=== PATIENT | male | born 1995 | race Caucasian/White ===

== ENCOUNTER 2016-04-26 21:50 | Emergency (ER) | payer OTHER ==
--- NOTE | 2016-04-26 22:11 | ED.PDOC ---
History of Present Illness - General Chief Complaint: Respiratory Problem Stated Complaint: cough and congestion x2 weeks Time Seen by Provider: 04/26/16 22:07 Source: patient Exam Limitations: no limitations - History of Present Illness Initial Comments: He stated that he had been coughing for 2 weeks got better then 3 days later had same episode of non productive cough no fever no sob no chest pains.No ill contact,no foreign travel Timing/Duration: other - 14 days Severity: moderate Possible Cause: occasional episodes, unknown cause Improving Factors: nothing Worsening Factors: nothing Associated Symptoms: denies symptoms Allergies/Adverse Reactions: Allergies NO KNOWN ALLERGY Allergy (Verified 09/07/15 23:02) Home Medications: Ambulatory Orders Methocarbamol [Robaxin] 750 mg PO BID #14 tab 12/29/15 Naproxen Sodium [Naprelan] 750 mg PO BID PRN #14 tab 12/29/15 Chlorhexidine Mouth Rinse [Peridex] 473 ml MT BID #1 bttl 01/09/16 Clindamycin HCl 150 mg PO Q6HR #30 cap 01/09/16 Gabapentin 300 mg PO BID #14 cap 01/09/16 Albuterol Inhaler [Ventolin Hfa Inhaler] 108 mcg IN QID PRN #1 inh 04/26/16 Chlorpheniramine Maleate [Chlor-Trimeton Allergy] 12 mg PO BID #30 tab 04/26/16 Dextromet/Guaifenesin 600/30 T [Mucinex Dm 600/30MG] 1 tab PO BID #30 tab Review of Systems - Review of Systems Constitutional: States: no symptoms reported EENTM: States: no symptoms reported Respiratory: States: see HPI Cardiology: States: no symptoms reported, chest pain Genitourinary: States: no symptoms reported Musculoskeletal: States: no symptoms reported Skin: States: no symptoms reported Neurological: States: emotional problems - depression taking meds Endocrine: States: no symptoms reported Hematologic/Lymphatic: States: no symptoms reported Past Medical History (General) - Patient Medical History Hx Seizures: No Hx Stroke: No Hx Dementia: No Hx Asthma: No Hx of COPD: No Hx Cardiac Disorders: No Hx Congestive Heart Failure: No Hx Pacemaker: No Hx Hypertension: No Hx Thyroid Disease: No Hx Diabetes: No Hx Gastroesophageal Reflux: No Hx Renal Disease: No Hx Cancer: No Hx of HIV: No Hx Hepatitis C: No Hx MRSA: No Surgical History: no surgical history - Vaccination History Hx Tetanus, Diphtheria Vaccination: No Hx Influenza Vaccination: No Hx Pneumococcal Vaccination: No - Social History Hx Tobacco Use: Yes - 1/2 ppd 5 years Cigarettes Packs Per Day: 10 Hx Chewing Tobacco Use: No Hx Alcohol Use: Yes - OCC Hx Substance Use: No Hx Substance Use Treatment: No Hx Depression: No Hx Physical Abuse: No Hx Emotional Abuse: No Hx Suspected Abuse: No - Activities of Daily Living Patient Lives Alone: No - family - Female History Patient : No Family Medical History - Family History Mother Hx Family Asthma: No Hx Family Congestive Heart Failure: No Hx Family Hypertension: Yes Hx Family Stroke: No Hx Cardiac Disease: No Hx Family Diabetes: No Hx Family Cancer: No Hx Family;Other: Depression Physical Exam - Physical Exam General Appearance: Alert, No apparent distress Eye Exam: bilateral normal ENT Exam: normal ENT inspection, hearing grossly normal, TMs normal, pharynx normal Neck: non-tender, full range of motion, supple, normal inspection Respiratory: chest non-tender, no respiratory distress, wheezing - mild Cardiovascular/Chest: normal peripheral pulses, regular rate, rhythm, no edema, no gallop Gastrointestinal/Abdominal: normal bowel sounds, non tender, soft, no organomegaly Extremity: normal range of motion, non-tender, normal inspection, no pedal edema Neurologic: no motor/sensory deficits, alert, normal mood/affect, oriented x 3 Skin Exam: normal color, warm/dry Progress - Results/Orders Results/Orders: 04/26/16 22:16 SVN/Updraft Therapy .ONCE Chest,1 View [RAD] Stat 04/27/16 09:00 [facility] Laboratory Results WBC 8.0 K/mm3 (4.8-10.8) 04/26/16 22:26 RBC 5.03 M/mm3 (4.70-6.10) 04/26/16 22:26 Hgb 15.3 gm/dL (14.0-18.0) 04/26/16 22:26 Hct 44.7 % (42.0-52.0) 04/26/16 22:26 MCV 88.9 fl (80.0-94.0) 04/26/16 22:26 MCH 30.5 pg (27.0-31.0) 04/26/16 22:26 MCHC 34.3 g/dL (33.0-37.0) 04/26/16 22: RDW 12.8 % (11.5-14.5) 04/26/16 22:26 Plt Count 175 K/mm3 (130-400) 04/26/16 22:26 MPV 9.6 fl (7.40-10.4) 04/26/16 22:26 Absolute Neuts (auto) 3.40 K/uL (1.8-6.8) 04/26/16 22:26 Absolute Lymphs (auto) 3.70 K/uL (1.0-3.4) H 04/26/16 22: Absolute Monos (auto) 0.60 K/uL (0.2-0.8) 04/26/16 22: Absolute Eos (auto) 0.10 K/uL (0.0-0.4) 04/26/16 22: Absolute Basos (auto) 0.10 K/uL (0.0-0.1) 04/26/16 22:26 Neutrophils % 43.1 % (42.0-78.0) 04/26/16 22: Lymphocytes % 46.2 % (20.0-50.0) 04/26/16 22: Monocytes % 7.9 % (2.0-9.0) 04/26/16 22: Eosinophils % 1.6 % (1.0-5.0) 04/26/16 22: Basophils % 1.2 % (0.0-2.0) 04/26/16 22:26 - EKG/XRAY/CT XRAY: chest - no consolidation no pneumothorax no effusion peribronchial infiltrates Departure - Departure Clinical Impression: Bronchitis, acute Qualifiers: Bronchitis organism: unspecified organism Qualifier Code: (J20.9) Acute bronchitis, unspecified Time of Disposition: 23:07 Disposition: Discharge to Home or Self Care Condition: Good Departure Forms: ED Discharge - Pt. Copy, Patient Portal Self Enrollment Instructions: DI for Acute Bronchitis, Nicotine Addiction, Reasons to Quit Smoking Referrals: Migel Villalta MD [Primary Care Provider] - 1-2 Weeks Prescriptions: Chlorpheniramine Maleate [Chlor-Trimeton Allergy] 12 mg PO BID #30 tab Dextromet/Guaifenesin 600/30 T [Mucinex Dm 600/30MG] 1 tab PO BID #30 tab Albuterol Inhaler [Ventolin Hfa Inhaler] 108 mcg IN QID PRN #1 inh PRN Reason: Cough Home Medications: Ambulatory Orders Methocarbamol [Robaxin] 750 mg PO BID #14 tab 12/29/15 Naproxen Sodium [Naprelan] 750 mg PO BID PRN #14 tab 12/29/15 Chlorhexidine Mouth Rinse [Peridex] 473 ml MT BID #1 bttl 01/09/16 Clindamycin HCl 150 mg PO Q6HR #30 cap 01/09/16 Gabapentin 300 mg PO BID #14 cap 01/09/16 Albuterol Inhaler [Ventolin Hfa Inhaler] 108 mcg IN QID PRN #1 inh 04/26/16 Chlorpheniramine Maleate [Chlor-Trimeton Allergy] 12 mg PO BID #30 tab 04/26/16 Dextromet/Guaifenesin 600/30 T [Mucinex Dm 600/30MG] 1 tab PO BID #30 tab Additional Instructions: FOLLOW UP WITH PRIMARY MD 05/01/2016
[2016-04-26] MEDS ORDERED: diphenhydrAMINE HCL 25 MG CAP PO ONE (22:16)
[2016-04-26] MEDS ORDERED: IPRATROPIUM/ALBUTEROL 3 ML VIAL NEB ONE (22:17)
[2016-04-26 22:53] VITALS: O2SAT 98
--- NOTE | 2016-04-26 23:14 | RAD ---
EXAM DESCRIPTION: Chest,1 View CLINICAL HISTORY: 21 years Male cough COMPARISON: X-ray thoracic spine study from 12/29/2015. FINDINGS: The cardiomediastinal silhouette appears unremarkable. No consolidating infiltrates or pleural effusions. No pneumothorax. IMPRESSION: No acute abnormality is identified. Electronically signed by: Toby Garcia MD 04/26/2016 10:42 PM FEATHER SHAPER
[2016-04-26 23:23] VITALS: BP 138/74; TEMP 97.8
--- NOTE | 2016-04-30 00:51 | RAD ---
EXAM DESCRIPTION: Chest,1 View CLINICAL HISTORY: 21 years Male cough COMPARISON: X-ray thoracic spine study from 12/29/2015. FINDINGS: The cardiomediastinal silhouette appears unremarkable. No consolidating infiltrates or pleural effusions. No pneumothorax. IMPRESSION: No acute abnormality is identified. Electronically signed by: Toby Garcia MD 04/26/2016 10:42 PM CERTIFICATION AND SELECTION SPECIALIST
--- NOTE | 2016-05-03 10:47 | RAD ---
EXAM DESCRIPTION: Chest,1 View CLINICAL HISTORY: 21 years Male cough COMPARISON: X-ray thoracic spine study from 12/29/2015. FINDINGS: The cardiomediastinal silhouette appears unremarkable. No consolidating infiltrates or pleural effusions. No pneumothorax. IMPRESSION: No acute abnormality is identified. Electronically signed by: Toby Garcia MD 04/26/2016 10:42 PM CLINICAL DATA MANAGER
== END 2016-04-26 23:25 | disposition home or self-care (01) ==
LOC: ER 21:50
DX: J20.9 Acute bronchitis, unspecified (principal); F17.210 Nicotine dependence, cigarettes, uncomplicated; Z79.899 Other long term (current) drug therapy
CPT/HCPCS: 36415; 71010; 85025; 94640; J7620; Q0163

== ENCOUNTER 2018-02-10 21:03 | Emergency (ER) | payer SELFPAY ==
--- NOTE | 2018-02-10 21:18 | ED.PDOC ---
History of Present Illness - General Chief Complaint: Respiratory Problem Stated Complaint: cough, chest discomfort Time Seen by Provider: 02/10/18 21:18 Source: patient Exam Limitations: no limitations - History of Present Illness Comments: Maynor Munguia 22 y/o male stated that he had a dry cough last week went to see his Md was prescribed antibiotics got better but his cough recurred 2 days ago this time with pleuritic pain during coughing episode no fever,no sob.He stated he smokes but cut down on his cigarette smoking.Denies chronic medical problem. Timing/Duration: changing over time, other - see hpi Cough Quality/Degree: dry cough Possible Cause: occasional episodes Improving Factors: nothing Worsening Factors: nothing Associated Symptoms: other - see hpi Respiratory Risk Factors: other - smoking Allergies/Adverse Reactions: Allergies NO KNOWN ALLERGY Allergy (Verified 02/10/18 21:14) Home Medications: Ambulatory Orders Benzonatate Perles [Tessalon Perles] 200 mg PO BID #20 cap 02/10/18 Sulfa/Trimeth 800/160 (Ds) Tab [Bactrim DS] 1 tablet PO BID #14 tab 02/10/18 Review of Systems - Review of Systems Respiratory: States: see HPI All other Systems: Reviewed and Negative, No Change from Baseline Past Medical History (General) - Patient Medical History Hx Seizures: No Hx Stroke: No Hx Dementia: No Hx Asthma: No Hx of COPD: No Hx Cardiac Disorders: No Hx Congestive Heart Failure: No Hx Pacemaker: No Hx Hypertension: No Hx Thyroid Disease: No Hx Diabetes: No Hx Gastroesophageal Reflux: No Hx Renal Disease: No Hx Cancer: No Hx of HIV: No Hx Hepatitis C: No Hx MRSA: No Surgical History: no surgical history - Vaccination History Hx Tetanus, Diphtheria Vaccination: No Hx Influenza Vaccination: No Hx Pneumococcal Vaccination: No - Social History Hx Tobacco Use: Yes - 1/2 ppd 5 years Hx Chewing Tobacco Use: No Hx Alcohol Use: Yes - OCC Hx Substance Use: No Hx Substance Use Treatment: No Hx Depression: No Hx Physical Abuse: No Hx Emotional Abuse: No Hx Suspected Abuse: No - Female History Patient : No Family Medical History - Family History Mother Hx Family Asthma: No Hx Family Congestive Heart Failure: No Hx Family Hypertension: Yes - both parents Hx Family Stroke: No Hx Cardiac Disease: No Hx Family Diabetes: No Hx Family Cancer: No Hx Family;Other: Depression Physical Exam - Physical Exam General Appearance: Alert, Comfortable, No apparent distress Eye Exam: bilateral normal ENT Exam: normal ENT inspection, hearing grossly normal, TMs normal, pharynx normal, nasal congestion Neck: non-tender, supple, normal inspection, trachea midline Respiratory: chest non-tender, lungs clear, normal breath sounds, no respiratory distress Cardiovascular/Chest: normal peripheral pulses, regular rate, rhythm, no murmur Gastrointestinal/Abdominal: non tender, soft, no organomegaly Extremity: no pedal edema, no calf tenderness Neurologic: alert, oriented x 3 Skin Exam: normal color, warm/dry Progress - Progress Progress: 02/10/18 21:28 Vital Signs - 8 hr 02/10/18 02/10/18 21:11 21:16 Temperature 97.3 F L Pulse Rate [ 98 H monitor] Respiratory 20 20 Rate Blood Pressure 156/107 [Left Arm] O2 Sat by Pulse 99 Oximetry - EKG/XRAY/CT XRAY: chest - no acute abnormalities Departure - Departure Clinical Impression: Upper respiratory infection Qualifiers: URI type: unspecified URI Qualified Code(s): J06.9 - Acute upper respiratory infection, unspecified Time of Disposition: 21:46 Disposition: Discharge to Home or Self Care Condition: Good Departure Forms: ED Discharge - Pt. Copy, Patient Portal Self Enrollment Instructions: Smoking: Not Just Harmful to Your Lungs and Heart, Quitting Smoking Referrals: Migel Villalta MD [Primary Care Provider] - 1-2 Weeks Prescriptions: Benzonatate Perles [Tessalon Perles] 200 mg PO BID #20 cap Sulfa/Trimeth 800/160 (Ds) Tab [Bactrim DS] 1 tablet PO BID #14 tab Home Medications: Ambulatory Orders Benzonatate Perles [Tessalon Perles] 200 mg PO BID #20 cap 02/10/18 Sulfa/Trimeth 800/160 (Ds) Tab [Bactrim DS] 1 tablet PO BID #14 tab 02/10/18 Additional Instructions: Follow up with primary Md 14 Feb 2018;Return to ER as needed;May take Benadryl capsule 2 capsule am/pm for cough(over the counter)
--- NOTE | 2018-02-10 21:42 | RAD ---
EXAM DESCRIPTION: Chest,1 View CLINICAL HISTORY:22 years Male, cough Comparison: April 26, 2016 FINDINGS: No focal lung consolidation. No pleural effusion. No pneumothorax. Cardiac and mediastinal silhouette is unremarkable. No acute osseous abnormality. Soft tissues are unremarkable. IMPRESSION: No acute findings. No focal lung consolidation. Electronically signed by: Jae Severino MD 02/10/2018 9:41 PM MOSAIC TILE MAKER
[2018-02-10] MEDS: AZITHROMYCIN 250 MG TAB PO ONE (21:47)
[2018-02-10] MEDS: diphenhydrAMINE HCL 25 MG CAP PO ONE (21:47)
[2018-02-10] MEDS: BENZONATATE PERLES 100 MG CAP PO ONE (21:47)
[2018-02-10 21:59] VITALS: BP 130/85; TEMP 97.4; O2SAT 97
== END 2018-02-10 21:59 | disposition home or self-care (01) ==
LOC: ER 21:03
DX: J06.9 Acute upper respiratory infection, unspecified (principal); F17.210 Nicotine dependence, cigarettes, uncomplicated
CPT/HCPCS: 71045; Q0144; Q0163

== ENCOUNTER 2019-01-19 08:46 | Emergency (ER) | payer OTHER ==
[2019-01-19 09:08] VITALS: TEMP 97.9
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
[2019-01-19 09:30] VITALS: BP 158/106; O2SAT 97
[2019-01-19] MEDS ORDERED: cefTRIAXone SODIUM 1 GM VIAL ONE (09:36)
[2019-01-19] MEDS ORDERED: SODIUM CHLORIDE 0.9% 50ML 50 ML ONE (09:37)
[2019-01-19] MEDS ORDERED: fentaNYL CITRATE INJ 50 MCG/ML AMP ONE (09:39)
[2019-01-19] MEDS ORDERED: fentaNYL CITRATE INJ 50 MCG/ML AMP IV ONE (09:39)
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
[2019-01-19] MEDS ORDERED: cefTRIAXone SODIUM 1 GM in SODIUM CHL 0.9% 50ML MIN-BAG+ 50 ML IVPB ONE (09:42)
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
== END 2019-01-19 09:48 | disposition short-term general hospital (02) ==
LOC: ER 08:46
DX: S01.111A Laceration without foreign body of right eyelid and periocular area, initial encounter (principal); S05.01XA Injury of conjunctiva and corneal abrasion without foreign body, right eye, initial encounter; H02.841 Edema of right upper eyelid; W22.8XXA Striking against or struck by other objects, initial encounter; Y99.0 Civilian activity done for income or pay; Y92.69 Other specified industrial and construction area as the place of occurrence of the external cause
CPT/HCPCS: 70450; 70480; 72125; A4216; J0696; J3010

== ENCOUNTER 2019-06-15 11:07 | Emergency (ER) | payer SELFPAY ==
[2019-06-15 11:18] VITALS: BP 146/112; TEMP 98.5; O2SAT 100
[2019-06-15] MEDS ORDERED: AMOXICILLIN 500 MG CAP PO ONE (11:26)
[2019-06-15] MEDS ORDERED: IBUPROFEN 200 MG TAB PO ONE (11:26)
--- NOTE | 2019-06-15 11:29 | ED.PDOC ---
History of Present Illness - General Chief Complaint: Dental/Mouth Stated Complaint: tooth pain x 3 days Time Seen by Provider: 06/15/19 11:17 Source: patient - History of Present Illness Initial Comments: 24 yo male presenting with cc of toothache. Onset 3 days ago with worsening, located to Right 1st and 2nd maxillary molars, radiates into jaw, constant, sharp/stabbing, 6/10 severity, worse with chewing, hot/cold temps, tried mouthwash without relief. Denies any fevers, swelling, warmth, drainage. No recent injuries. Trying to get into dentist for extraction of the teeth but given quarantine measures he is unable to currently. Allergies/Adverse Reactions: Allergies NO KNOWN ALLERGY Allergy (Verified 02/10/18 21:14) Home Medications: Ambulatory Orders Acetaminophen W/ Codeine [Tylenol W/ CODEINE #3] 1 ea PO Q8H PRN 7 Days #10 06/15/19 Amoxicillin 500 mg PO TID 7 Days #21 cap 06/15/19 Review of Systems - Review of Systems Review of Systems: 06/15/19 11:28 as per HPI All other Systems: Reviewed and Negative Past Medical History (General) - Patient Medical History Hx Seizures: No Hx Stroke: No Hx Dementia: No Hx Asthma: No Hx of COPD: No Hx Cardiac Disorders: No Hx Congestive Heart Failure: No Hx Pacemaker: No Hx Hypertension: No Hx Thyroid Disease: No Hx Diabetes: No Hx Gastroesophageal Reflux: No Hx Renal Disease: No Hx Cancer: No Hx of HIV: No Hx Hepatitis C: No Hx MRSA: No Surgical History: no surgical history - Vaccination History Hx Tetanus, Diphtheria Vaccination: No Hx Influenza Vaccination: No Hx Pneumococcal Vaccination: No - Social History Hx Tobacco Use: No Hx Chewing Tobacco Use: No Hx Alcohol Use: Yes - Social use Hx Substance Use: No Hx Substance Use Treatment: No Hx Depression: No Hx Physical Abuse: No Hx Emotional Abuse: No Hx Suspected Abuse: No - Female History Patient : No - Triage Comment ED Triage Comment: Patient states he has tooth pain that started 3 days ago, thinks he has an exposed nerve to his tooth. He is not able to get into see his dentist. Family Medical History - Family History Mother Hx Family Asthma: No Hx Family Congestive Heart Failure: No Hx Family Hypertension: Yes - both parents Hx Family Stroke: No Hx Cardiac Disease: No Hx Family Diabetes: No Hx Family Cancer: No Hx Family;Other: Depression Physical Exam - Physical Exam General Appearance: Alert, Comfortable, No apparent distress Eye Exam: bilateral normal Ear Exam: bilateral ear: auricle normal, canal normal Nasal Exam: normal inspection Throat Exam: pharynx normal, dental tenderness - Moderate to Right maxillary 1st and 2nd molars - marked decay through dentin and enamel down to gumline in both teeth, several other teeth with severe decay as well Neck: non-tender, full range of motion, supple, normal inspection Cardiovascular/Respiratory: regular rate, rhythm, no M/R/G, normal peripheral pulses Abdominal Exam: non-tender Neurologic: no motor/sensory deficits, alert, normal mood/affect Skin Exam: normal color, warm/dry Progress - Progress Progress: 06/15/19 11:30 Toothache -R maxillary 1st and 2nd molars -suspect hypersensitivity from severe dental caries, possible also early developing pulpitis/abscess -discussed diagnosis and need for definitive trx with dental extraction. Advised OTC analgesics. Will give Rx of amoxicillin 500 TID x7 days, first dose here. Will give PRN Rx of Tylenol #3 for breakthrough pain -dc home in good condition Antoni Peterson MD Billing #[id number] Departure - Departure Clinical Impression: Dental caries, Tooth hypersensitivity Time of Disposition: 11:32 Disposition: Discharge to Home or Self Care Condition: Good Departure Forms: ED Discharge - Pt. Copy, Patient Portal Self Enrollment Instructions: DI for Dental Pain Diet: other - lukewarm mechanical soft diet Activity: increase activity as tolerated Referrals: Migel Villalta MD [Primary Care Provider] - 1-2 Weeks Prescriptions: Acetaminophen W/ Codeine [Tylenol W/ CODEINE #3] 1 ea PO Q8H PRN 7 Days #10 PRN Reason: Pain Amoxicillin 500 mg PO TID 7 Days #21 cap Home Medications: Ambulatory Orders Acetaminophen W/ Codeine [Tylenol W/ CODEINE #3] 1 ea PO Q8H PRN 7 Days #10 06/15/19 Amoxicillin 500 mg PO TID 7 Days #21 cap 06/15/19 Additional Instructions: Follow up as soon as able with the dentist for dental extraction of the affected teeth. Continue OTC medications for pain such as topical Orajel, Tylenol, and ibuprofen. You may take Tylenol #3 for breakthrough pain but do not drive or operate heavy machinery while taking.
== END 2019-06-15 11:50 | disposition home or self-care (01) ==
LOC: ER 11:07
DX: K02.9 Dental caries, unspecified (principal); K08.89 Other specified disorders of teeth and supporting structures